=== PATIENT | female | born 1980 | race Caucasian/White ===

== ENCOUNTER 2025-01-06 06:16 | Day surgery (SDC) | payer BC, OTHER ==
[2025-01-02 15:25] VITALS: BMI 20.7
[2025-01-06] MEDS ORDERED: HEPARIN NA (PORCINE) 5,000 UNITS/ML 1ML VIAL ONE (09:18)
[2025-01-06] MEDS ORDERED: LIDOCAINE HCL 1%, 10 MG/ML (20ML VIAL) ONE (09:18)
[2025-01-06] MEDS ORDERED: PROMETHAZINE HCL 25 MG/1 ML VIAL IVPB PRN (09:29)
[2025-01-06] MEDS ORDERED: PROPOFOL 20 ML ONE (09:34)
[2025-01-06] MEDS ORDERED: MIDAZOLAM HCL 2 MG/2 ML SINGLE DOSE VIAL ONE (09:35)
[2025-01-06] MEDS: ACETAMINOPHEN 1000 MG/100 ML BAG IVPB ONE (10:45)
[2025-01-06] MEDS: ACETAMINOPHEN INJECTION 100 ML ONE (10:45)
[2025-01-06] MEDS: LACTATED RINGERS SOLUTION 1,000 ML IV SCH (12:00)
[2025-01-06] MEDS ORDERED: ONDANSETRON 4 MG/2 ML VIAL ONE ×2 (12:24→15:30)
[2025-01-06] MEDS: ONDANSETRON 4 MG/2 ML VIAL IVPUSH PRN (12:25)
[2025-01-06] MEDS ORDERED: ONDANSETRON 4 MG/2 ML VIAL IM PRN (17:19)
[2025-01-06] MEDS: DEXTROSE 5%-0.45% SALINE 1,000 ML IV SCH (18:25)
[2025-01-06] MEDS ORDERED: ONDANSETRON 4 MG/2 ML VIAL IVPUSH SCH (19:15)
[2025-01-06] MEDS: morphine CARPU-JECT 2 MG/1 ML DISP.SYRIN IVPUSH ONE (19:36)
[2025-01-06] MEDS: TRIMETHOBENZAMIDE HCL 200MG/2ML INJ IM ONE (19:36)
[2025-01-06] MEDS: CEFAZOLIN 500 MG in DEXTROSE 5%-WATER - 50 ML IVPB SCH (21:16)
[2025-01-07] MEDS: morphine CARPU-JECT 2 MG/1 ML DISP.SYRIN IVPUSH ONE (02:25)
[2025-01-07] MEDS: CEFAZOLIN 500 MG in DEXTROSE 5%-WATER - 50 ML IVPB SCH (04:35)
[2025-01-07 08:36] LABS: ABSOLUTE IMMATURE GRANULOCYTES 0.03 x10^3/uL (0.0-0.031); BASOPHILS # 0.03 x10^3/uL (0.01-0.08); EOSINOPHIL % 0.8 % (0.7-5.8); EOSINOPHILS # 0.05 x10^3/uL (0.04-0.36); MCHC 31.9 g/dl (32.2-35.5); MEAN CELL VOLUME 92.3 fl (79.4-94.8); MEAN PLT VOLUME 10.3 fl (9.4-12.3); MONOCYTE # 0.37 x10^3/uL (0.24-0.86); MONOCYTE % 6.1 % (4.7-12.5); RDW 12.2 % (12.2-17.1)
[2025-01-07 09:02] LABS: GLUCOSE,RANDOM 110.0 mg/dL (74-106)
[2025-01-07 09:03] LABS: CO2 28.0 mmol/L (21-32)
[2025-01-07] MEDS: PHENAZOPYRIDINE HCL 100 MG TABLET (FP) PO SCH (09:07)
[2025-01-07 12:09] LABS: CREATININE 0.64 mg/dL (0.55-1.3)
[2025-01-07] MEDS: NAPROXEN 375 MG TABLET PO ONE (13:21)
[2025-01-08 03:06] VITALS: RESP 18
[2025-01-08 05:49] VITALS: TEMP 97.9
[2025-01-08] MEDS: ACETAMINOPHEN 1000 MG/100 ML BAG IVPB ONE (08:02)
[2025-01-08 09:17] LABS: ABSOLUTE IMMATURE GRANULOCYTES 0.01 x10^3/uL (0.0-0.031); BASOPHILS # 0.02 x10^3/uL (0.01-0.08); EOSINOPHIL % 1.1 % (0.7-5.8); EOSINOPHILS # 0.05 x10^3/uL (0.04-0.36); MCHC 31.5 g/dl (32.2-35.5); MEAN CELL VOLUME 93.2 fl (79.4-94.8); MEAN PLT VOLUME 10.2 fl (9.4-12.3); MONOCYTE # 0.24 x10^3/uL (0.24-0.86); MONOCYTE % 5.4 % (4.7-12.5); RDW 12.2 % (12.2-17.1)
[2025-01-08 09:50] LABS: GLUCOSE,RANDOM 126.0 mg/dL (74-106)
[2025-01-08 09:51] LABS: TOT PROT 6.2 g/dl (6.4-8.2)
[2025-01-08 09:52] LABS: CO2 28.0 mmol/L (21-32)
[2025-01-08 09:53] LABS: ALK PHOS 41.0 U/L (40-150)
[2025-01-08 09:56] LABS: SGOT/AST 19.0 U/L (5-34); SGPT/ALT 10.0 U/L (0-55)
[2025-01-08 09:57] LABS: CREATININE 0.58 mg/dL (0.55-1.3)
[2025-01-08] MEDS: NAPH,MB-DB/K PH,MBDB POWDER PACKET PO ONE (14:11)
[2025-01-08] MEDS: MAGNESIUM OXIDE 400 MG TABLET (FP) PO ONE (14:11)
[2025-01-08] MEDS: LORazepam 2 MG/ML SDV VIAL IVPUSH ONE (14:12)
[2025-01-08 15:56] VITALS: BP 109/86; PULSE 83
== END 2025-01-08 16:15 | disposition home or self-care (01) ==
LOC: SUATTDRO 06:16 → JASU-SURG 06:16 → JASUSAT 06:16 → J6S 17:54 → JASUSAT 01-08 16:15
PROVIDERS: ATTEND Internal Medicine
PROC: 0T7B8ZZ Dilation of Bladder, Via Natural or Artificial Opening Endoscopic (ICD-10-PCS; principal; 2025-01-06 10:00)
DX: N30.10 Interstitial cystitis (chronic) without hematuria (principal)
CPT/HCPCS: 36415; 70450-TC; 80048; 80053; 83735; 84100; 85025; 94760